=== PATIENT | male | born 1975 | race Caucasian/White ===

== ENCOUNTER → 2019-09-11 | Emergency (ER) | payer SELFPAY ==
[~2019-09-11] MED LIST: Atropine Sulfate 1 mg/10 ml Syringe ONE; EPINEPHrine 1 MG/10 ML Abboject SYRINGE ONE; Furosemide 40 MG/4 ML VIAL ONE; Ketamine 50 MG/ML (10ML VIAL) ONE; Magnesium 5 GM/10 ML VIAL ONE; Naloxone HCl 0.4 mg/ml Vial ONE; Nitroglycerin 50 MG/250 ML BOT 250 ML ONE; Norepinephrine 4 MG/4 ML VIAL ONE; Rocuronium Bromide 10 MG/ML (10ML VIAL) ONE; Rocuronium Bromide 50 MG/5 ML VIAL ONE; Sodium Bicarb 50 MEQ/50 ML Abboject 8.4% SYRINGE ONE
[2019-09-11 22:16] LABS: INR-International Normal Ratio 1.3; PTT 35.3 SEC (34.3-44.8); Prothrombin Time 16.1 SEC (14.4-16.4)
[2019-09-11 22:22] LABS: Acetaminophen Less than 6.0 mcg/mL (10.0-30.0); Alcohol Less than 10 mg/dL (Less than 10); Salicylate Less than 8.0 mg/dL (15.0-30.0)
[2019-09-11 22:25] LABS: ALT (SGPT) 279 U/L (8-55); AST (SGOT) 179 U/L (35-140); Albumin 3.7 g/dL (2.8-4.4); Alkaline Phosphatase 119 U/L (120-360); Anion Gap 26 mmol/L (10-20); BUN (Urea Nitrogen) 12 mg/dL (5.1-16.8); Bilirubin, Total 0.6 mg/dL (2.0-6.0); Calcium 8.4 mg/dL (7.6-10.4); Carbon Dioxide 16 mmol/L (20-28); Chloride 102 mmol/L (98-113); Globulin 2.6 g/dL (2.4-3.5); Lipase 26 U/L (8-78); Potassium 3.2 mmol/L (3.7-5.9); Protein, Total 6.3 g/dL (4.6-7.0); Sodium 141 mmol/L (133-146)
[2019-09-11 22:30] LABS: Glucose 513 mg/dL (50-80)
[2019-09-11 22:37] LABS: Anisocytosis SLIGHT = 6-15 cells (100X) (0-5/hpf); Band 4 % (10-18); Eosinophils 2 % (0-10); Hemoglobin 14.2 g/dL (14.5-22.5); Lymphocytes 24 % (26-36); MDiff Complete? YES; Mean Corpuscular HGB CONC 31.1 g/dL (30.0-36.0); Mean Corpuscular Hemoglobin 29.2 pg (23.0-31.0); Mean Platelet Volume 8.5 fL (7.4-10.4); Monocytes 6 % (0-6); Neutrophil 64 % (32-62); Platelet Count 192 thou/uL (130-400); Platelet Morphology Comment Appears Adequate; Red Blood Cell (RBC) Count 4.85 mill/uL (4.10-6.10); White Blood Cell (WBC) Count 15.9 thou/uL (9.0-30.0)
[2019-09-11 22:41] LABS: D-Dimer Test 3.74 *mcg/mL (0.41-2.47)
[2019-09-11 22:43] LABS: CKMB 0.9 ng/mL (0-6.6)
[2019-09-12 03:57] LABS: Bilirubin Negative (Negative); Blood, Urine Moderate (Negative); Clarity Slightly Cloudy (Clear); Glucose, Urine (Dipstick) >=1000 mg/dL (Negative); Leukocyte Negative (Negative); Nitrite Negative (Negative); Protein, Urine (Dipstick) > or equal to 300 mg/dL (Neg-Trace); Urobilinogen 0.2 mg/dL (Less than 2)
[2019-09-12 04:04] LABS: Squamous Epithelial 0-3 HPF (0-3)
[2019-09-12 04:05] LABS: Bacteria/HPF 1+ HPF (None Seen); Sperm/HPF 2+ HPF (None Seen)
--- NOTE | 2019-09-12 07:56 | RAD ---
CHEST 1 VIEW PORTABLE: Date: 09/11/2019 The heart is markedly enlarged and there is diffuse severe pulmonary edema bilaterally. The patient h as been intubated. The tip of the endotracheal tube curves towards the right, but still appears to be above the bifurcation of the trachea. A NG tube is present, but cannot be followed all the way to it s termination. IMPRESSION: Severe CHF. Endotracheal tube appears to be above the justo by a few centimeters. POS: HOME
--- NOTE | 2019-09-12 07:57 | RAD ---
ABDOMEN 1 VIEW: Date: 09/11/2019 A few of the upper abdomen from diaphragm through mid pelvic level was done to assess the NG tube. It appears to take an appropriate course into the proximal portion of the stomach. The stomach is not d istended. Free air is not appreciated. IMPRESSION: Endotracheal tube appears to appropriate course into the stomach. Its tip probably protrudes into the wall of the greater curvature. POS: HOME
== END ==
LOC: BURERS 21:27 → MERGE 21:27 → EDBD 21:27
DX: J96.01 Acute respiratory failure with hypoxia (principal)
CPT/HCPCS: 31500; 36556; 36680; 51702; 71045; 74018; 80053; 80307; 81003; 81015; 82553; 83605; 83690; 83880; 84443; 84484; 85025; 85379; 85610; 85730; 92950; 93005; 94760; 96365; 96366; 96375; J0171; J0461; J1940; J2310; J3475